=== PATIENT | male | born 1970 | race African-American/Black ===

== ENCOUNTER 2016-07-19 12:04 | Inpatient (IN) | payer OTHER ==
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
[2016-07-19] MEDS ORDERED: LOPERAMIDE HCL 2 MG CAPSULE PO PRN (19:11)
[2016-07-19] MEDS ORDERED: MAG HYDROX/AL HYDROX/SIMETH 30 ML UNIT-DOSE CUP PO PRN (19:11)
[2016-07-19] MEDS ORDERED: guaiFENesin/D-METHORPHAN HB 10 ML UNIT-DOSE CUPS PO PRN (19:11)
[2016-07-19] MEDS ORDERED: ACETAMINOPHEN 325 MG TABLET (FP) PO PRN (19:11)
[2016-07-19] MEDS ORDERED: MENTHOL/PHENOL 1 EACH UD MM PRN (19:11)
[2016-07-19] MEDS ORDERED: MAGNESIUM CITRATE 300 ML BOTTLE PO PRN (19:11)
[2016-07-19] MEDS ORDERED: P-EPHED 60MG/TRIPROLIDI 2.5MG TABLET PO PRN (19:11)
[2016-07-19] MEDS ORDERED: IBUPROFEN 400 MG TABLET (FP) PO PRN (19:11)
[2016-07-19] MEDS ORDERED: MAGNESIUM HYDROX 2400MG/30ML ORAL SUSPENSION 30 ML CUP PO PRN (19:11)
[2016-07-19] MEDS ORDERED: cloNIDine HCL 0.1 MG TABLET PO PRN (19:15)
[2016-07-19] MEDS ORDERED: CYCLOBENZAPRINE HCL 10 MG TABLET (FP) PO PRN (19:15)
[2016-07-19] MEDS: chlordiazePOXIDE HCL 25 MG CAPSULE PO PRN (20:44)
[2016-07-19] MEDS: chlordiazePOXIDE HCL 25 MG CAPSULE PO SCH (22:10)
[2016-07-19] MEDS: THIAMINE HCL 100 MG TABLET (FP) PO SCH (22:10)
[2016-07-19] MEDS: diphenhydrAMINE HCL 50 MG CAPSULE PO PRN (22:10)
[2016-07-19 23:54] LABS: URINE APPEARANCE CLEAR; URINE BILIRUBIN NEGATIVE (NEGATIVE); URINE BLOOD NEGATIVE (NEGATIVE); URINE COLOR AMBER; URINE GLUCOSE (UA) NEGATIVE (NEGATIVE); URINE KETONE TRACE (NEGATIVE); URINE LEUK ESTERASE NEGATIVE (NEGATIVE); URINE NITRITE NEGATIVE (NEGATIVE); URINE PROTEIN NEGATIVE (NEGATIVE); URINE UROBILINOGEN NEGATIVE E.U./dl (0.2-1.0)
[2016-07-20] MEDS: chlordiazePOXIDE HCL 25 MG CAPSULE PO SCH ×4 (05:30→22:12)
[2016-07-20] MEDS ORDERED: cloNIDine HCL 0.1 MG TABLET PO ONE (08:54)
[2016-07-20 09:56] LABS: ALBUMIN 3.6 g/dl (3.4-5.0); ANION GAP 7 (8-16); CALCIUM 8.8 mg/dL (8.5-10.1); CO2 30 mmol/L (21-32); GLUCOSE,RANDOM 151 mg/dL (74-106)
[2016-07-20] MEDS: PRENATAL VITAMINS W/ FOLIC ACID TABLET (FP) PO SCH (09:57)
[2016-07-20 10:00] LABS: ALK PHOS 172 U/L (45-117); BILIRUBIN,TOTAL 0.6 mg/dL (0.2-1.0); CREATININE 1.1 mg/dL (0.7-1.3); SGOT/AST 95 U/L (15-37); SGPT/ALT 80 U/L (12-78); TOT PROT 6.9 g/dl (6.4-8.2)
[2016-07-20 10:01] LABS: MCH 27.7 pg (25.7-33.7); MEAN CELL VOLUME 83.8 fl (80-96); MEAN PLT VOLUME 8.5 fl (7.5-11.1); PLATELET COUNT 175 K/MM3 (134-434); RDW 16.4 % (11.9-15.9)
--- NOTE | 2016-07-20 11:07 | PN ---
S CIWA - CIWA Score Nausea/Vomitin Muscle Tremors: 4-Moderate,w/Arms Extend Anxiety: 4-Mod. Anxious/Guarded Agitation: 4-Moderately Restless Paroxysmal Sweats: 3 Orientation: 0-Oriented Tacttile Disturbances: 1-Very Mild Itch/Numbness Auditory Disturbances: 0-None Visual Disturbances: 0-None Headache: 1-Very Mild CIWA-Ar Total Score: 20 BHS Progress Note (SOAP) Subjective: nausea, sweats, interrupted sleep, anxiety, tremors Objective: 07/20/16 11:06 Vital Signs - 24 hr 07/19/16 07/19/16 07/20/16 12:13 21:52 00:30 Temperature 98.0 F 97.0 F L Pulse Rate 161 H 123 H Respiratory 20 20 18 Rate Blood Pressure 154/112 148/102 07/20/16 07/20/16 07/20/16 03:30 06:18 09:32 Temperature 97.5 F L 99.5 F Pulse Rate 87 119 H Respiratory 18 16 20 Rate Blood Pressure 107/66 142/89 Laboratory Tests 07/19/16 07/20/16 07/20/16 22:00 07:00 07:00 WBC 7.0 D RBC 4.97 Hgb 13.8 Hct 41.7 MCV 83.8 MCHC 33.0 RDW 16.4 H Plt Count 175 MPV 8.5 Sodium 143 Potassium 4.2 Chloride 106 Carbon Dioxide 30 D Anion Gap 7 L BUN 13 D Creatinine 1.1 Creat Clearance w eGFR > 60 Random Glucose 151 H D Calcium 8.8 Total Bilirubin 0.6 AST 95 H D ALT 80 H D Alkaline Phosphatase 172 H Total Protein 6.9 Albumin 3.6 Urine Color Tamy Urine Appearance Clear Urine pH 5.0 Ur Specific [place] 1.025 Urine Protein Negative Urine Glucose (UA) Negative Urine Ketones Trace H Urine Blood Negative Urine Nitrite Negative Urine Bilirubin Negative Urine Urobilinogen Negative Ur Leukocyte Esterase Negative elevated LFTs Assessment: 07/20/16 11:06 withdrawal sx, alcoholic hepatitis Plan: cont detox, fluids, encourage ambulation, clondine for tachycardia ordered
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
[2016-07-20] MEDS ORDERED: NICOTINE POLACRILEX 4 MG GUM BUC ONE (19:35)
[2016-07-20] MEDS ORDERED: NICOTINE POLACRILEX 4 MG GUM BUC PRN (19:37)
[2016-07-20] MEDS: cloNIDine HCL 0.1 MG TABLET PO SCH (22:12)
[2016-07-20] MEDS: THIAMINE HCL 100 MG TABLET (FP) PO SCH (22:12)
[2016-07-20] MEDS: diphenhydrAMINE HCL 50 MG CAPSULE PO PRN (22:12)
--- NOTE | 2016-07-20 23:35 | EKG ---
Test Reason : Blood Pressure : / mmHG Vent. Rate : 095 BPM Atrial Rate : 095 BPM P-R Int : 136 ms QRS Dur : 096 ms QT Int : 348 ms P-R-T Axes : 041 050 057 degrees QTc Int : 437 ms NORMAL SINUS RHYTHM NORMAL ECG WHEN COMPARED WITH ECG OF 19-JUL-2016 13:00, NO SIGNIFICANT CHANGE WAS FOUND Confirmed by MATTHEW MAGUIRE MD ([id number]) on 07/20/2016 11:35:05 PM Referred By: Confirmed By:MATTHEW MAGUIRE MD
[2016-07-21] MEDS: chlordiazePOXIDE HCL 25 MG CAPSULE PO SCH ×3 (05:42→17:43)
[2016-07-21] MEDS: PRENATAL VITAMINS W/ FOLIC ACID TABLET (FP) PO SCH (10:29)
[2016-07-21] MEDS: NICOTINE 21 MG/24 HOURS TOPICAL PATCH TD SCH (10:29)
[2016-07-21] MEDS: cloNIDine HCL 0.1 MG TABLET PO SCH ×2 (10:29→22:14)
--- NOTE | 2016-07-21 10:49 | PN ---
S CIWA - CIWA Score Nausea/Vomitin-No Nausea/No Vomiting Muscle Tremors: 4-Moderate,w/Arms Extend Anxiety: 3 Agitation: 4-Moderately Restless Paroxysmal Sweats: 3 Orientation: 0-Oriented Tacttile Disturbances: 0-None Auditory Disturbances: 0-None Visual Disturbances: 0-None Headache: 0-None Present CIWA-Ar Total Score: 14 BHS Progress Note (SOAP) Subjective: dry skin sweats interrupted sleep agitation anxious Objective: 07/21/16 10:47 Vital Signs Temperature 98.2 F 07/21/16 09:53 Pulse Rate 109 H 07/21/16 09:53 Respiratory Rate 18 07/21/16 09:53 Blood Pressure 123/65 07/21/16 09:53 O2 Sat by Pulse Oximetry (%) Laboratory Tests 07/19/16 07/20/16 07/20/16 22:00 07:00 07:00 WBC 7.0 D RBC 4.97 Hgb 13.8 Hct 41.7 MCV 83.8 MCHC 33.0 RDW 16.4 H Plt Count 175 MPV 8.5 Sodium 143 Potassium 4.2 Chloride 106 Carbon Dioxide 30 D Anion Gap 7 L BUN 13 D Creatinine 1.1 Creat Clearance w eGFR > 60 Random Glucose 151 H D Calcium 8.8 Total Bilirubin 0.6 AST 95 H D ALT 80 H D Alkaline Phosphatase 172 H Total Protein 6.9 Albumin 3.6 Urine Color Tamy Urine Appearance Clear Urine pH 5.0 Ur Specific [place] 1.025 Urine Protein Negative Urine Glucose (UA) Negative Urine Ketones Trace H Urine Blood Negative Urine Nitrite Negative Urine Bilirubin Negative Urine Urobilinogen Negative Ur Leukocyte Esterase Negative RPR Titer 07/20/16 07:00 WBC RBC Hgb Hct MCV MCHC RDW Plt Count MPV Sodium Potassium Chloride Carbon Dioxide Anion Gap BUN Creatinine Creat Clearance w eGFR Random Glucose Calcium Total Bilirubin AST ALT Alkaline Phosphatase Total Protein Albumin Urine Color Urine Appearance Urine pH Ur Specific [place] Urine Protein Urine Glucose (UA) Urine Ketones Urine Blood Urine Nitrite Urine Bilirubin Urine Urobilinogen Ur Leukocyte Esterase RPR Titer Nonreactive awake/alert ambulating no acute distress Assessment: 07/21/16 10:48 withdrawal sx Plan: continue detox increase fluids eucerine ointment ordered
[2016-07-21] MEDS: THIAMINE HCL 100 MG TABLET (FP) PO SCH (22:14)
[2016-07-21] MEDS: chlordiazePOXIDE 5 MG CAPSULE PO SCH (22:14)
[2016-07-21] MEDS: MINERAL OIL/PETROLAT/WATER TOPICAL CREAM 113 GM JAR TP SCH ×2 (22:14→23:34)
[2016-07-21] MEDS: diphenhydrAMINE HCL 50 MG CAPSULE PO PRN (22:15)
[2016-07-22] MEDS: chlordiazePOXIDE 5 MG CAPSULE PO SCH ×3 (06:13→18:24)
[2016-07-22] MEDS: PRENATAL VITAMINS W/ FOLIC ACID TABLET (FP) PO SCH (10:08)
[2016-07-22] MEDS: cloNIDine HCL 0.1 MG TABLET PO SCH ×2 (10:08→22:34)
[2016-07-22] MEDS: NICOTINE 21 MG/24 HOURS TOPICAL PATCH TD SCH ×2 (10:10→13:11)
--- NOTE | 2016-07-22 10:37 | PN ---
BHS Progress Note (SOAP) Subjective: sweats interrupted sleep Objective: 07/22/16 10:36 Vital Signs Temperature 95.9 F L 07/22/16 09:33 Pulse Rate 103 H 07/22/16 09:33 Respiratory Rate 20 07/22/16 09:33 Blood Pressure 125/78 07/22/16 09:33 O2 Sat by Pulse Oximetry (%) awake/alert ambulating no acute distress Assessment: 07/22/16 10:36 withdrawal sx Plan: continue detox increase fluids d/c in am
[2016-07-22] MEDS: chlordiazePOXIDE HCL 25 MG CAPSULE PO PRN (13:07)
[2016-07-22] MEDS: MINERAL OIL/PETROLAT/WATER TOPICAL CREAM 113 GM JAR TP SCH ×2 (13:10→22:34)
[2016-07-22] MEDS: chlordiazePOXIDE HCL 10 MG CAPSULE PO SCH (22:33)
[2016-07-22] MEDS: THIAMINE HCL 100 MG TABLET (FP) PO SCH (22:34)
[2016-07-22] MEDS: diphenhydrAMINE HCL 50 MG CAPSULE PO PRN (22:34)
[2016-07-23] MEDS: chlordiazePOXIDE HCL 10 MG CAPSULE PO SCH (05:31)
[2016-07-23 06:24] VITALS: BP 127/81; PULSE 86; TEMP 97.7
--- NOTE | 2016-07-23 08:50 | PN ---
S Progress Note (SOAP) Subjective: ALERT,NO COMPLAINT Objective: 07/23/16 08:49 Vital Signs Temperature 97.7 F 07/23/16 06:00 Pulse Rate 86 07/23/16 06:00 Respiratory Rate 16 07/23/16 06:00 Blood Pressure 127/81 07/23/16 06:00 O2 Sat by Pulse Oximetry (%) Assessment: 07/23/16 08:49 DETOX COMPLETED,NO WITHDRAWAL SYMPTOM Plan: DISCHARGE TODAY,FOLLOW UP WITH AFTER CARE PROGRAM ARRANGEMENT
--- NOTE | 2016-07-23 08:54 | DS ---
[facility] Detox Discharge Summary Admission Date: 07/19/16 Discharge Date: 07/23/16 - History Present History: Alcohol Dependence, Pcp Dependence Additional Comments: FOLLOW UP WITH AFTER CARE PROGRAM ARRANGEMENT Pertinent Past History: NICOTINE DEPENDENCE - Physical Exam Results Vital Signs: Vital Signs Temperature 97.7 F 07/23/16 06:00 Pulse Rate 86 07/23/16 06:00 Respiratory Rate 16 07/23/16 06:00 Blood Pressure 127/81 07/23/16 06:00 O2 Sat by Pulse Oximetry (%) Pertinent Admission Physical Exam Findings: WITHDRAWAL SYMPTOM - Treatment Hospital Course: Detox Protocol Followed, Detoxed Safely, Responded well, Discharged Condition Good Patient has Accepted a Rehab Referral to: DECLINED - Medication Discharge Medications: Ambulatory Orders NK [No Known Home Medication] 07/19/16 - AMA Did Patient Leave Against Medical Advice: No
== END 2016-07-23 09:50 | disposition home or self-care (01) | DRG 775 ==
LOC: YASAS 12:04 → Y6N 18:06
PROVIDERS: ADMIT Internal Medicine Addiction Medicine; ATTEND Internal Medicine Addiction Medicine
PROC: HZ2ZZZZ Detoxification Services for Substance Abuse Treatment (ICD-10-PCS; principal; 2016-07-23)
DX: F10.230 Alcohol dependence with withdrawal, uncomplicated (principal); F16.20 Hallucinogen dependence, uncomplicated; F17.210 Nicotine dependence, cigarettes, uncomplicated; F34.1 Dysthymic disorder; M24.411 Recurrent dislocation, right shoulder
CPT/HCPCS: 36415; 71010-TC; 80053; 80307; 81003; 82550; 82553; 83735; 84484; 85025; 85027; 85610; 86593; 86803; 93005; 93010; 99285-25

== ENCOUNTER 2016-10-19 10:10 | Inpatient (IN) | payer OTHER ==
[2016-10-19 10:43] VITALS: BMI 16.3
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
[2016-10-19] MEDS ORDERED: NICOTINE POLACRILEX 2 MG GUM BC PRN (13:25)
[2016-10-19] MEDS ORDERED: hydrOXYzine PAMOATE 25 MG CAPSULE (FP) PO PRN (13:25)
[2016-10-19] MEDS ORDERED: IBUPROFEN 400 MG TABLET (FP) PO PRN (13:25)
[2016-10-19] MEDS ORDERED: chlordiazePOXIDE HCL 25 MG CAPSULE PO PRN (13:25)
[2016-10-19] MEDS ORDERED: ACETAMINOPHEN 325 MG TABLET (FP) PO PRN (13:25)
[2016-10-19] MEDS ORDERED: guaiFENesin/D-METHORPHAN HB 10 ML UNIT-DOSE CUPS PO PRN (13:25)
[2016-10-19] MEDS ORDERED: MAGNESIUM CITRATE 300 ML BOTTLE PO PRN (13:25)
[2016-10-19] MEDS ORDERED: MAGNESIUM HYDROX 2400MG/30ML ORAL SUSPENSION 30 ML CUP PO PRN (13:25)
[2016-10-19] MEDS ORDERED: LOPERAMIDE HCL 2 MG CAPSULE PO PRN (13:25)
[2016-10-19] MEDS ORDERED: P-EPHED 60MG/TRIPROLIDI 2.5MG TABLET PO PRN (13:25)
[2016-10-19] MEDS ORDERED: MENTHOL/PHENOL 1 EACH UD MM PRN (13:25)
[2016-10-19] MEDS ORDERED: MAG HYDROX/AL HYDROX/SIMETH 30 ML UNIT-DOSE CUP PO PRN (13:25)
[2016-10-19] MEDS: NICOTINE 14 MG/24 HOURS TOPICAL PATCH TD SCH (13:53)
[2016-10-19] MEDS ORDERED: chlordiazePOXIDE HCL 25 MG CAPSULE PO ONE (14:00)
[2016-10-19] MEDS: chlordiazePOXIDE HCL 25 MG CAPSULE PO SCH ×2 (17:00→22:10)
[2016-10-19] MEDS: THIAMINE HCL 100 MG TABLET (FP) PO SCH (22:09)
[2016-10-19] MEDS: diphenhydrAMINE HCL 50 MG CAPSULE PO PRN (22:10)
--- NOTE | 2016-10-19 23:02 | EKG ---
Test Reason : Blood Pressure : / mmHG Vent. Rate : 097 BPM Atrial Rate : 097 BPM P-R Int : 124 ms QRS Dur : 088 ms QT Int : 316 ms P-R-T Axes : 070 062 063 degrees QTc Int : 401 ms NORMAL SINUS RHYTHM NONSPECIFIC ST AND T WAVE ABNORMALITY ABNORMAL ECG WHEN COMPARED WITH ECG OF 19-JUL-2016 21:09, T WAVE VARIATION Confirmed by MATTHEW MAGUIRE MD ([id number]) on 10/19/2016 11:01:52 PM Referred By: Confirmed By:MATTHEW MAGUIRE MD
[2016-10-20] MEDS: diphenhydrAMINE HCL 50 MG CAPSULE PO PRN (00:26)
[2016-10-20] MEDS: chlordiazePOXIDE HCL 25 MG CAPSULE PO SCH ×4 (05:45→22:06)
[2016-10-20 10:26] LABS: MCH 29.1 pg (25.7-33.7); MCHC 32.1 g/dl (32.0-35.9); MEAN CELL VOLUME 90.7 fl (80-96); MEAN PLT VOLUME 9.1 fl (7.5-11.1); PLATELET COUNT 249 K/MM3 (134-434); RDW 14.4 % (11.9-15.9)
[2016-10-20] MEDS: PRENATAL VITAMINS W/ FOLIC ACID TABLET (FP) PO SCH (10:28)
[2016-10-20] MEDS: NICOTINE 14 MG/24 HOURS TOPICAL PATCH TD SCH (10:29)
[2016-10-20 11:05] LABS: ALBUMIN 3.8 g/dl (3.4-5.0); ALK PHOS 104 U/L (45-117); ANION GAP 13 (8-16); BILIRUBIN,TOTAL 0.6 mg/dL (0.2-1.0); CALCIUM 9.4 mg/dL (8.5-10.1); CO2 26 mmol/L (21-32); COCKROFT - GAULT 74.2; CREATININE 0.9 mg/dL (0.7-1.3); GLUCOSE,RANDOM 126 mg/dL (74-106); SGOT/AST 41 U/L (15-37); SGPT/ALT 38 U/L (12-78); TOT PROT 6.9 g/dl (6.4-8.2)
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
--- NOTE | 2016-10-20 12:23 | PN ---
S CIWA - CIWA Score Nausea/Vomitin-No Nausea/No Vomiting Muscle Tremors: 4-Moderate,w/Arms Extend Anxiety: 4-Mod. Anxious/Guarded Agitation: 3 Paroxysmal Sweats: 3 Orientation: 0-Oriented Tacttile Disturbances: 0-None Auditory Disturbances: 0-None Visual Disturbances: 0-None Headache: 0-None Present CIWA-Ar Total Score: 14 BHS Progress Note (SOAP) Subjective: Anxiety,tremors,sweating,interrupted sleep,restless Objective: 10/20/16 12:22 Vital Signs - 8 hr 10/20/16 10/20/16 06:30 09:12 Temperature 96.3 F L 98.0 F Pulse Rate 85 100 H Respiratory 18 20 Rate Blood Pressure 145/93 124/85 Laboratory Tests 10/20/16 10/20/16 10/20/16 06:00 06:00 06:00 WBC 6.0 RBC 4.38 Hgb 12.8 Hct 39.7 MCV 90.7 MCHC 32.1 RDW 14.4 D Plt Count 249 D MPV 9.1 Sodium 140 Potassium 3.7 Chloride 101 Carbon Dioxide 26 Anion Gap 13 BUN 15 Creatinine 0.9 Creat Clearance w eGFR > 60 Random Glucose 126 H Calcium 9.4 Total Bilirubin 0.6 AST 41 H D ALT 38 D Alkaline Phosphatase 104 D Total Protein 6.9 Albumin 3.8 RPR Titer Nonreactive labs noted Assessment: 10/20/16 12:22 Withdrawal sx. Plan: Continue detox
[2016-10-20] MEDS: THIAMINE HCL 100 MG TABLET (FP) PO SCH (22:06)
[2016-10-20] MEDS: QUEtiapine FUMARATE 50 MG TABLET PO SCH (22:06)
[2016-10-21] MEDS: chlordiazePOXIDE HCL 25 MG CAPSULE PO SCH ×2 (05:49→10:12)
[2016-10-21] MEDS: QUEtiapine FUMARATE 50 MG TABLET PO SCH ×2 (10:12→22:16)
[2016-10-21] MEDS: PRENATAL VITAMINS W/ FOLIC ACID TABLET (FP) PO SCH (10:12)
[2016-10-21] MEDS: HYDROCORTISONE 1% TOPICAL CREAM 30 GM TUBE TP SCH ×4 (10:12→22:15)
[2016-10-21] MEDS: NICOTINE 14 MG/24 HOURS TOPICAL PATCH TD SCH (10:13)
--- NOTE | 2016-10-21 11:27 | PN ---
[facility] CIWA - CIWA Score Nausea/Vomitin-No Nausea/No Vomiting Muscle Tremors: 3 Anxiety: 4-Mod. Anxious/Guarded Agitation: 4-Moderately Restless Paroxysmal Sweats: 3 Orientation: 0-Oriented Tacttile Disturbances: 0-None Auditory Disturbances: 0-None Visual Disturbances: 0-None Headache: 0-None Present CIWA-Ar Total Score: 14 BHS Progress Note (SOAP) Subjective: Anxiety,tremors,interrupted sleep,sweating,restless. Objective: 10/21/16 11:25 Vital Signs - 8 hr 10/21/16 10/21/16 06:17 09:24 Temperature 96.6 F L 98.1 F Pulse Rate 100 H 130 H Respiratory 18 20 Rate Blood Pressure 132/88 114/74 Laboratory Last Values WBC 6.0 K/mm3 (4.0-10.0) 10/20/16 06:00 RBC 4.38 M/mm3 (4.00-5.60) 10/20/16 06:00 Hgb 12.8 GM/dL (11.7-16.9) 10/20/16 06:00 Hct 39.7 % (35.4-49) 10/20/16 06:00 MCV 90.7 fl (80-96) 10/20/16 06:00 MCHC 32.1 g/dl (32.0-35.9) 10/20/16 06:00 RDW 14.4 % (11.9-15.9) D 10/20/16 06:00 Plt Count 249 K/MM3 (134-434) D 10/20/16 06:00 MPV 9.1 fl (7.5-11.1) 10/20/16 06:00 Sodium 140 mmol/L (136-145) 10/20/16 06:00 Potassium 3.7 mmol/L (3.5-5.1) 10/20/16 06:00 Chloride 101 mmol/L (98-107) 10/20/16 06:00 Carbon Dioxide 26 mmol/L (21-32) 10/20/16 06:00 Anion Gap 13 (8-16) 10/20/16 06:00 BUN 15 mg/dL (7-18) 10/20/16 06:00 Creatinine 0.9 mg/dL (0.7-1.3) 10/20/16 06:00 Creat Clearance w eGFR > 60 (>60) 10/20/16 06:00 Random Glucose 126 mg/dL (74-106) H 10/20/16 06:00 Calcium 9.4 mg/dL (8.5-10.1) 10/20/16 06:00 Total Bilirubin 0.6 mg/dL (0.2-1.0) 10/20/16 06:00 AST 41 U/L (15-37) H D 10/20/16 06:00 ALT 38 U/L (12-78) D 10/20/16 06:00 Alkaline Phosphatase 104 U/L (45-117) D 10/20/16 06:00 Total Protein 6.9 g/dl (6.4-8.2) 10/20/16 06:00 Albumin 3.8 g/dl (3.4-5.0) 10/20/16 06:00 RPR Titer Nonreactive (NONREACTIVE) 10/20/16 06:00 labs noted Assessment: 10/21/16 11:26 Withdrawal sx. Plan: Continue detox
[2016-10-21] MEDS: chlordiazePOXIDE 5 MG CAPSULE PO SCH ×2 (17:22→22:16)
[2016-10-21] MEDS: THIAMINE HCL 100 MG TABLET (FP) PO SCH (22:16)
[2016-10-21] MEDS: diphenhydrAMINE HCL 50 MG CAPSULE PO PRN (22:16)
[2016-10-22] MEDS: chlordiazePOXIDE 5 MG CAPSULE PO SCH ×2 (05:25→10:17)
[2016-10-22] MEDS: HYDROCORTISONE 1% TOPICAL CREAM 30 GM TUBE TP SCH ×4 (10:17→22:10)
[2016-10-22] MEDS: PRENATAL VITAMINS W/ FOLIC ACID TABLET (FP) PO SCH (10:17)
[2016-10-22] MEDS: QUEtiapine FUMARATE 50 MG TABLET PO SCH ×2 (10:18→22:10)
[2016-10-22] MEDS: NICOTINE 14 MG/24 HOURS TOPICAL PATCH TD SCH (10:18)
--- NOTE | 2016-10-22 11:26 | PN ---
[facility] Progress Note (SOAP) Subjective: ANXIETY,TREMORS,SWEATS. Objective: 10/22/16 11:24 Vital Signs Temperature 100.2 F H 10/22/16 10:30 Pulse Rate 113 H 10/22/16 10:30 Respiratory Rate 18 10/22/16 10:30 Blood Pressure 135/84 10/22/16 10:30 O2 Sat by Pulse Oximetry (%) Laboratory Last Values WBC 6.0 K/mm3 (4.0-10.0) 10/20/16 06:00 RBC 4.38 M/mm3 (4.00-5.60) 10/20/16 06:00 Hgb 12.8 GM/dL (11.7-16.9) 10/20/16 06:00 Hct 39.7 % (35.4-49) 10/20/16 06:00 MCV 90.7 fl (80-96) 10/20/16 06:00 MCHC 32.1 g/dl (32.0-35.9) 10/20/16 06:00 RDW 14.4 % (11.9-15.9) D 10/20/16 06:00 Plt Count 249 K/MM3 (134-434) D 10/20/16 06:00 MPV 9.1 fl (7.5-11.1) 10/20/16 06:00 Sodium 140 mmol/L (136-145) 10/20/16 06:00 Potassium 3.7 mmol/L (3.5-5.1) 10/20/16 06:00 Chloride 101 mmol/L (98-107) 10/20/16 06:00 Carbon Dioxide 26 mmol/L (21-32) 10/20/16 06:00 Anion Gap 13 (8-16) 10/20/16 06:00 BUN 15 mg/dL (7-18) 10/20/16 06:00 Creatinine 0.9 mg/dL (0.7-1.3) 10/20/16 06:00 Creat Clearance w eGFR > 60 (>60) 10/20/16 06:00 Random Glucose 126 mg/dL (74-106) H 10/20/16 06:00 Calcium 9.4 mg/dL (8.5-10.1) 10/20/16 06:00 Total Bilirubin 0.6 mg/dL (0.2-1.0) 10/20/16 06:00 AST 41 U/L (15-37) H D 10/20/16 06:00 ALT 38 U/L (12-78) D 10/20/16 06:00 Alkaline Phosphatase 104 U/L (45-117) D 10/20/16 06:00 Total Protein 6.9 g/dl (6.4-8.2) 10/20/16 06:00 Albumin 3.8 g/dl (3.4-5.0) 10/20/16 06:00 RPR Titer Nonreactive (NONREACTIVE) 10/20/16 06:00 Assessment: 10/22/16 11:26 WITHDRAWAL SX Plan: CONTINUE DETOX FBS IN AM
[2016-10-22] MEDS: chlordiazePOXIDE HCL 10 MG CAPSULE PO SCH ×2 (17:29→22:10)
[2016-10-22] MEDS: THIAMINE HCL 100 MG TABLET (FP) PO SCH (22:10)
[2016-10-23] MEDS: chlordiazePOXIDE HCL 10 MG CAPSULE PO SCH (05:33)
[2016-10-23 10:51] VITALS: BP 149/92; PULSE 123; TEMP 97.4
--- NOTE | 2016-10-23 16:03 | DS ---
[facility] Detox Discharge Summary Admission Date: 10/19/16 Discharge Date: 10/23/16 - History Present History: Alcohol Dependence, Pcp Dependence Additional Comments: ADVISED PATIENT TO FOLLOW-UP WITH [facility] / REHAB MEDICAL PROVIDER AFTER DISCHARGE FROM DETOX FOR GENERAL MEDICAL ASSESSMENT AND FOR ABNORMAL LAB VALUES. Pertinent Past History: Depression, History of Dislocation of Right Shoulder. - Physical Exam Results Vital Signs: Vital Signs Temperature 97.4 F L 10/23/16 10:51 Pulse Rate 123 H 10/23/16 10:51 Respiratory Rate 18 10/23/16 10:51 Blood Pressure 149/92 10/23/16 10:51 O2 Sat by Pulse Oximetry (%) Pertinent Admission Physical Exam Findings: WITHDRAWAL SYMPTOMS. Laboratory Last Values WBC 6.0 K/mm3 (4.0-10.0) 10/20/16 06:00 RBC 4.38 M/mm3 (4.00-5.60) 10/20/16 06:00 Hgb 12.8 GM/dL (11.7-16.9) 10/20/16 06:00 Hct 39.7 % (35.4-49) 10/20/16 06:00 MCV 90.7 fl (80-96) 10/20/16 06:00 MCHC 32.1 g/dl (32.0-35.9) 10/20/16 06:00 RDW 14.4 % (11.9-15.9) D 10/20/16 06:00 Plt Count 249 K/MM3 (134-434) D 10/20/16 06:00 MPV 9.1 fl (7.5-11.1) 10/20/16 06:00 Sodium 140 mmol/L (136-145) 10/20/16 06:00 Potassium 3.7 mmol/L (3.5-5.1) 10/20/16 06:00 Chloride 101 mmol/L (98-107) 10/20/16 06:00 Carbon Dioxide 26 mmol/L (21-32) 10/20/16 06:00 Anion Gap 13 (8-16) 10/20/16 06:00 BUN 15 mg/dL (7-18) 10/20/16 06:00 Creatinine 0.9 mg/dL (0.7-1.3) 10/20/16 06:00 Creat Clearance w eGFR > 60 (>60) 10/20/16 06:00 Random Glucose 126 mg/dL (74-106) H 10/20/16 06:00 Calcium 9.4 mg/dL (8.5-10.1) 10/20/16 06:00 Total Bilirubin 0.6 mg/dL (0.2-1.0) 10/20/16 06:00 AST 41 U/L (15-37) H D 10/20/16 06:00 ALT 38 U/L (12-78) D 10/20/16 06:00 Alkaline Phosphatase 104 U/L (45-117) D 10/20/16 06:00 Total Protein 6.9 g/dl (6.4-8.2) 10/20/16 06:00 Albumin 3.8 g/dl (3.4-5.0) 10/20/16 06:00 RPR Titer Nonreactive (NONREACTIVE) 10/20/16 06:00 LABS NOTED. - Treatment Hospital Course: Detox Protocol Followed, Detoxed Safely, Responded well, Discharged Condition Good Patient has Accepted a Rehab Referral to: NO - PT. ELECTING TO GO HOME AT THIS TIME. AA/12-STEP PROGRAMS RECOMMENDED. 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
== END 2016-10-23 09:45 | disposition home or self-care (01) | DRG 775 ==
LOC: YASAS 10:10 → Y3N 12:56
PROVIDERS: ADMIT Internal Medicine; ATTEND Internal Medicine
PROC: HZ2ZZZZ Detoxification Services for Substance Abuse Treatment (ICD-10-PCS; principal; 2016-10-23)
DX: F10.230 Alcohol dependence with withdrawal, uncomplicated (principal); F16.20 Hallucinogen dependence, uncomplicated; F17.213 Nicotine dependence, cigarettes, with withdrawal; F19.24 Other psychoactive substance dependence with psychoactive substance-induced mood disorder; F22 Delusional disorders; K02.9 Dental caries, unspecified; M24.411 Recurrent dislocation, right shoulder
CPT/HCPCS: 36415; 80053; 81003; 85027; 86593; 93005; 93010